=== PATIENT | female | born 1940 | race Hispanic/Latino ===

== ENCOUNTER 2021-12-20 12:05 | Emergency (ER) | payer OTHER ==
[~2021-12-20] VITALS: Ht 154.9 cm; Wt 59.0 kg
[2021-12-20 12:06] VITALS: BP 148/50
== END 2021-12-20 15:42 | disposition home or self-care (01) ==
LOC: EDH 12:05
DX: S82.61XA Displaced fracture of lateral malleolus of right fibula, initial encounter for closed fracture (principal); E78.00 Pure hypercholesterolemia, unspecified; I10 Essential (primary) hypertension; W01.0XXA Fall on same level from slipping, tripping and stumbling without subsequent striking against object, initial encounter; Y93.89 Activity, other specified; Y92.89 Other specified places as the place of occurrence of the external cause; Y99.8 Other external cause status
CPT/HCPCS: 29515; 73610

== ENCOUNTER → 2023-05-05 | Outpatient (CLI) | payer OTHER | END | disposition home or self-care (01) | LOC: RAH 12:37 | PROVIDERS: ATTEND Family Medicine | DX: R51.9 Headache, unspecified (principal) | CPT/HCPCS: 70450 ==